=== PATIENT | female | born 1985 | race African-American/Black ===

== ENCOUNTER 2023-05-08 17:00 | Emergency (ER) | payer OTHER, SELFPAY ==
[2023-05-08 17:03] VITALS: BP 121/95
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
== END 2023-05-08 19:19 | disposition home or self-care (01) ==
LOC: EMR 17:00
PROVIDERS: EMERGENCY PHYSICIAN Emergency Medicine
DX: F41.9 Anxiety disorder, unspecified (principal); R03.0 Elevated blood-pressure reading, without diagnosis of hypertension
CPT/HCPCS: 99281